=== PATIENT | male | born 1995 | race Caucasian/White ===

== ENCOUNTER 2020-01-23 22:26 | Emergency (ER) | payer BC ==
[2020-01-24] MEDS ORDERED: diphenhydrAMINE 25 MG CAP ONE (00:35)
== END 2020-01-24 01:00 | disposition home or self-care (01) ==
LOC: ERS 22:26
DX: F41.9 Anxiety disorder, unspecified (principal); R25.3 Fasciculation
CPT/HCPCS: 99284; Q0163